=== PATIENT | male | born 2000 | race Caucasian/White ===

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

== ENCOUNTER 2022-08-25 15:02 | Emergency (ER) | payer BC, OTHER ==
--- NOTE | 2022-08-25 15:39 | ED ---
Upper Extremity HPI - General Source: patient, RN notes reviewed Mode of arrival: ambulatory Limitations: no limitations <Lenny Graves - Last Filed: 08/25/22 15:37> - General Source: patient, RN notes reviewed Mode of arrival: ambulatory Limitations: no limitations <Candi Das - Last Filed: 08/29/22 18:03> - General Stated Complaint: L hand lac/injury Time Seen by Provider: 08/25/22 15:37 - History of Present Illness Initial Comments: 22-year-old male presents emergency Department chief complaint of digit injury. Patient states he is splitting wood and states this finger got caught between splitting aspect of it. Patient states that it was crushed. Patient states that he has pain, swelling of the fifth digit, tetanus up-to-date within the last 5 years. Patient denies paresthesias. Patient states he has pain with range of motion. (Lenny Graves) 22-year-old male presents to the emergency department with injury to the fifth digit on the left hand. States injury occurred while splitting wood today when it was crushed. Complains of swelling and pain with range of motion. Bleeding controlled prior to arrival. Tetanus shot is up-to-date. Denies any loss of sensation. No other injuries (Candi Das) - Related Data Previous Rx's Medication Instructions Recorded Dicyclomine [Bentyl] 10 mg PO TID PRN #7 capsule 01/24/17 Allergies Allergy/AdvReac Type Severity Reaction Status Date / Time No Known Allergies Allergy Verified 08/25/22 16:29 Review of Systems ROS Other: All systems not noted in ROS Statement are negative. <Lenny Graves - Last Filed: 08/25/22 15:37> ROS Other: All systems not noted in ROS Statement are negative. <Candi Das - Last Filed: 08/29/22 18:03> ROS Statement: Those systems with pertinent positive or pertinent negative responses have been documented in the HPI. Past Medical History Past Medical History: No Reported History History of Any Multi-Drug Resistant Organisms: None Reported Past Surgical History: No Surgical Hx Reported Past Psychological History: No Psychological Hx Reported Past Alcohol Use History: None Reported Past Drug Use History: None Reported <Lenny Graves - Last Filed: 08/25/22 15:37> General Exam Limitations: no limitations General appearance: alert, in no apparent distress Respiratory exam: Present: normal lung sounds bilaterally. Absent: respiratory distress, wheezes, rales, rhonchi, stridor Cardiovascular Exam: Present: regular rate, normal rhythm, normal heart sounds. Absent: systolic murmur, diastolic murmur, rubs, gallop, clicks Left Forearm Wrist exam: Present: normal inspection, full ROM. Absent: tenderness, swelling Hand Wrist exam: Present: other (5th digit diffusely swollen with discomfort at MIP and superficial laceration on the ulnar surface of the middle phalanx. No los of sensation. ROM decreased by pain and swelling.) Vascular: Present: vascular compromise, normal capillary refill. Absent: Pallo Neurological exam: Present: alert, oriented X3 Psychiatric exam: Present: normal affect, normal mood <Candi Das - Last Filed: 08/29/22 18:03> Course <Candi Das - Last Filed: 08/29/22 18:03> Vital Signs 08/25/22 16:27 Temperature 98.5 F Pulse Rate 65 Respiratory 20 Rate Blood Pressure 111/67 O2 Sat by Pulse 98 Oximetry - Reevaluation(s) Reevaluation #1: 08/25/22 21:00 Wound thoroughly cleansed and irrigated. Patient declined local anesthetic agent and suturing. Steri-Strips applied with good wound approximation. Instructed on wound care, cleansing, and follow up. He verbalizes understanding. (Candi Das) Medical Decision Making - Radiology Data Radiology results: report reviewed, image reviewed <Candi Das - Last Filed: 08/29/22 18:03> - Medical Decision Making 22-year-old male presents to the emergency department for evaluation of injury to the fifth digit on the left hand. Upon exam, patient is well-appearing and in no acute distress. Has moderate amount of swelling, which patient states his improved from initial injury earlier today. Range of motion slightly decreased by pain and swelling. No loss of sensation distally. X-ray was obtained and shows no osseous deformity or foreign body. Wound was cleansed. Tetanus shot up-to-date. Patient declined local anesthetic and sutures. Steri-Strips were applied to approximate wound. Wound care discussed at length with patient and he verbalizes understanding. He will be discharged home to follow up with his PCP for reevaluation. Return parameters discussed in detail. Patient verbalizes understanding and agrees with this plan. Attending: Candi Was pt. sent in by a medical professional or institution? @ -No Did you speak to anyone other than the patient for history? @ -No Did you review nursing and triage notes? @ -Yes, agree Were old charts reviewed? @ -No Differential Diagnosis? @ -Laceration, soft tissue injury, foreign body, fracture of fifth digit, this is not meant to be an exhaustive list EKG interpreted by me (3pts min.)? @ -Not applicable X-rays interpreted by me (1pt min.)? @ - X-ray interpreted by me shows no acute osseous abnormality or foreign body. CT interpreted by me (1pt min.)? @ -Not applicable U/S interpreted by me (1pt. min.)? @ -Not applicable What testing was considered but not performed? (CT, X-rays, U/S, labs)? Why? @ -Suggested suturing wound closed, however patient declined. What meds were considered but not given? Why? @ - Offered local anesthetic or digital block, but patient declined. Did you discuss the management of the patient with other professionals? @ -None Did you reconcile home meds? @ -No Was smoking cessation discussed for >3mins.? @ -No Was critical care preformed (if so, how long)? @ -No Were there social determinants of health that impacted care today? How? (Homelessness, low income, unemployed, alcoholism, drug addiction, transportation, low edu. Level, literacy, decrease access to med. care, half-way, rehab)? @ -No Was there de-escalation of care discussed even if they declined? (Discuss DNR or withdrawal of care, Hospice)? @ -No What co-morbidities impacted this encounter? (DM, HTN, Smoking, COPD, CAD, Cancer, CVA, Hep., AIDS, mental health diagnosis, sleep apnea, morbid obesity)? @No Was patient admitted / discharged? @ -Discharged Undiagnosed new problem with uncertain prognosis? @ -None Drug Therapy requiring intensive monitoring for toxicity (Heparin, Nitro, Insulin, Cardizem)? @ -None Were any procedures done? @ -None Diagnosis/symptom? @ -Laceration fifth digit left Acute, or Chronic, or Acute on Chronic? @ -Acute Uncomplicated (without systemic symptoms) or Complicated (systemic symptoms)? @ -Uncomplicated Side effects of treatment? @ -None Exacerbation, Progression, or Severe Exacerbation] @ -No Poses a threat to life or bodily function? @ -No (Candi Das) - Radiology Data Interpreted by me: X-ray as interpreted by me shows no acute osseous abnormality or foreign body. Soft tissue swelling present. (Candi Das) X-ray of the left finger, fifth digit shows some optimal exam due to incomplete extension of the fifth finger. No acute displaced fracture seen. Joint space is maintained. Moderate diffuse soft tissue swelling is noted. (Candi Das) Disposition <Lenny Graves - Last Filed: 08/25/22 15:37> Is patient prescribed a controlled substance at d/c from ED?: No Time of Disposition: 21:00 <Candi Das - Last Filed: 08/29/22 18:03> Clinical Impression: Finger laceration Disposition: HOME SELF-CARE Condition: Stable Instructions (If sedation given, give patient instructions): Laceration (ED) Additional Instructions: Leave Steri-Strips in place for the next 2 days then remove and gently cleanse with soap and water. Reapply or replace Steri-Strips as needed if they become wet, dirty, or saturated with blood. Monitor carefully for any signs of infection including increased redness, fever, or foul-smelling drainage. Apply ice for no more than 20 minutes per hour. Keep extremity elevated while at rest. May take Motrin if needed for discomfort. Follow-up with your PCP for a recheck if needed on Thursday. Return to the emergency department with any new, worsening, or concerning symptoms. Referrals: Guy Downing MD [Primary Care Provider] - 1-2 days
--- NOTE | 2022-08-25 15:57 | XR ---
EXAMINATION TYPE: XR finger LT DATE OF EXAM: 08/25/2022 COMPARISON: NONE HISTORY: Crushing laceration injury with pain TECHNIQUE: 3 views left fifth finger. FINDINGS: Exam slightly suboptimal due to incomplete extension of the fifth finger. No acute displace d fracture is seen. Joint spaces are maintained. Moderate diffuse soft tissue swelling is noted. IMPRESSION: As above.
[2022-08-25 16:29] VITALS: BP 111/67; PULSE 65; RESP 20; TEMP 98.5
[2022-08-25] MEDS ORDERED: BACITRACIN OINT 1 EACH PACKET TOPICAL ONE (20:29)
== END 2022-08-25 21:28 | disposition home or self-care (01) ==
LOC: EC 15:02
DX: S61.219A Laceration without foreign body of unspecified finger without damage to nail, initial encounter (principal); W23.1XXA Caught, crushed, jammed, or pinched between stationary objects, initial encounter
CPT/HCPCS: 99282